=== PATIENT | male | born 2000 | race Caucasian/White ===

== ENCOUNTER 2020-05-11 21:06 | Emergency (ER) | payer OTHER ==
[2020-05-11] MEDS ORDERED: SODIUM CHLORIDE 1,000 ML IV ONE (21:12)
[2020-05-11] MEDS ORDERED: morphine CARPU-JECT 2 MG/1 ML DISP.SYRIN IVPUSH ONE (21:12)
[2020-05-11 21:13] VITALS: BP 129/89; PULSE 98; TEMP 98.8; BMI 23.1
[2020-05-11] MEDS ORDERED: morphine SULFATE 4 MG/ML VIAL ONE (21:14)
[2020-05-11] MEDS ORDERED: PROPOFOL 20 ML ONE (22:16)
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
[2020-05-11] MEDS ORDERED: PROPOFOL 200 MG/20 ML VIAL IVPUSH STA (23:58)
== END 2020-05-11 23:30 | disposition home or self-care (01) ==
LOC: FER 21:06
PROC: 3E033NZ Introduction of Analgesics, Hypnotics, Sedatives into Peripheral Vein, Percutaneous Approach (ICD-10-PCS; principal; 2020-05-11)
PROC: 3E033FZ Introduction of Intracirculatory Anesthetic into Peripheral Vein, Percutaneous Approach (ICD-10-PCS; 2020-05-11)
PROC: 3E0337Z Introduction of Electrolytic and Water Balance Substance into Peripheral Vein, Percutaneous Approach (ICD-10-PCS; 2020-05-11)
DX: S43.005A Unspecified dislocation of left shoulder joint, initial encounter (principal)
CPT/HCPCS: 73030-TC-LT-FY; 99284-25